=== PATIENT | female | born 1965 | race African-American/Black ===

== ENCOUNTER 2018-08-08 11:45 | Outpatient (CLI) | payer OTHER ==
--- NOTE | 2018-08-08 12:10 | RAD ---
AP view chest as well as supine and upright views abdomen. HISTORY: Constipation AP view chest as well as supine and upright views abdomen obtained. The lungs are well aerated. No evidence of active intrathoracic disease seen. No evidence of effusion s, pneumonia or pneumothorax seen. 2 views abdomen demonstrate a moderate amount of stool seen in the colon. No evidence of bowel obstru ction or ileus seen no dilated loops of bowel seen. IMPRESSION: Moderate amount of stool.
== END 2018-08-08 11:46 | disposition home or self-care (01) ==
LOC: BICRAD 11:45
PROVIDERS: ATTEND Internal Medicine
DX: K59.00 Constipation, unspecified (principal); R19.5 Other fecal abnormalities
CPT/HCPCS: 74022

== ENCOUNTER 2020-01-22 09:09 | Outpatient (CLI) | payer OTHER ==
--- NOTE | 2020-01-22 11:30 | MMO ---
Bilateral MAMMO Bilat Screen [facility]DI. CLINICAL HISTORY: Patient is 54 years old and is seen for screening. The patient has no family history of breast cancer. The patient has no personal history of cancer. VIEWS: The views performed were: bilateral craniocaudal; bilateral mediolateral oblique; and bilateral exaggerated craniocaudal. This study has been interpreted with the assistance of computer-aided detection. MAMMOGRAM FINDINGS: There are scattered fibroglandular densities. Benign calcifications are noted bilaterally. There are no suspicious masses, suspicious calcifications, or new areas of architectural distortion. IMPRESSION: THERE IS NO MAMMOGRAPHIC EVIDENCE OF MALIGNANCY. A ROUTINE FOLLOW-UP MAMMOGRAM IN 1 YEAR IS RECOMMENDED. ACR BI-RADS Category 2 - Benign finding MAMMOGRAPHY NOTE: 1. A negative mammogram report should not delay a biopsy if a dominant of clinically suspicious mass is present. 2. Approximately 10% to 15% of breast cancers are not detected by mammography. 3. Adenosis and dense breasts may obscure an underlying neoplasm. Reported by: EITAN OSCAR MD Electonically Signed: [id number]
== END 2020-01-22 09:10 | disposition home or self-care (01) ==
LOC: BICMAMMO 09:09
PROVIDERS: ATTEND Internal Medicine
DX: Z12.31 Encounter for screening mammogram for malignant neoplasm of breast (principal)
CPT/HCPCS: 77067

== ENCOUNTER 2020-04-08 10:16 | Outpatient (CLI) | payer OTHER ==
--- NOTE | 2020-04-08 12:51 | RAD ---
SINUS SERIES 3 VIEWS: Date: 04/08/2020 HISTORY: Right-sided sinus pain. FINDINGS: The frontal sinuses are somewhat hypoplastic. The sphenoid, ethmoid, and maxillary sinuses are clear. No fluid or mucosal change. IMPRESSION: Negative sinuses. POS: VENITA
--- NOTE | 2020-04-08 12:52 | RAD ---
PA AND LATERAL CHEST: Date: 04/08/2020 HISTORY: Cough. FINDINGS: Heart size within normal limits. There are atherosclerotic changes of the aorta. Lungs are clear of a ny infiltrative process. IMPRESSION: No active intrathoracic disease. POS: VENITA
== END 2020-04-08 10:17 | disposition home or self-care (01) ==
LOC: BICRAD 10:16
PROVIDERS: ATTEND Internal Medicine
DX: J01.90 Acute sinusitis, unspecified (principal); R05 Cough
CPT/HCPCS: 70220; 71046

== ENCOUNTER 2021-01-24 09:53 | Outpatient (CLI) | payer MEDICAID, OTHER | END 2021-01-24 09:54 | disposition home or self-care (01) | LOC: BICMAMMO 09:53 | PROVIDERS: ATTEND Nurse Practitioner Family | DX: Z12.31 Encounter for screening mammogram for malignant neoplasm of breast (principal) | CPT/HCPCS: 77067 ==

== ENCOUNTER 2023-11-28 13:19 | Outpatient (CLI) | payer OTHER | END 2023-11-28 13:20 | disposition home or self-care (01) | LOC: BICMAMMO 13:19 | PROVIDERS: ATTEND Nurse Practitioner Family | DX: Z12.31 Encounter for screening mammogram for malignant neoplasm of breast (principal) | CPT/HCPCS: 77067 ==